=== PATIENT | female | born 1945 | race Caucasian/White ===

== ENCOUNTER 2016-05-29 14:56 | Outpatient (CLI) | payer MEDICARE ==
[2016-05-30 12:01] LABS: #Basophils 0.2 thou/uL (0.0-0.2); #Eosinphils 0.2 thou/uL (0.0-0.7); #Lymphocytes 1.3 thou/uL (1.20-3.40); #Monocytes 0.7 thou/uL (0.11-0.59); %Basophils 1.4 % (0.0-1.0); %Monocytes 5.7 % (0.0-10.0); Hematocrit 44.3 % (36.0-47.0); Mean Platelet Volume 8.1 fL (7.4-10.4); White Blood Cell (WBC) Count 11.4 thou/uL (4.8-10.8)
[2016-05-30 12:33] LABS: Hemoglobin A1c 5.4 % (4.0-6.0)
[2016-05-30 12:35] LABS: ALT (SGPT) 21 U/L (0-55); AST (SGOT) 25 U/L (5-34); Alkaline Phosphatase 81 U/L (40-150); Anion Gap 19 mmol/L (10-20); BUN (Urea Nitrogen) 20 mg/dL (9.8-20.1); Bilirubin, Total 0.3 mg/dL (0.2-1.2); Calc. Creatinine Clearance 0 mL/min (70-130); Calcium 9.7 mg/dL (7.8-10.44); Carbon Dioxide 34 mmol/L (23-31); Chloride 94 mmol/L (98-107); Estimated GFR-MDRD 47; Globulin 3.1 g/dL (2.4-3.5); LDL Cholesterol, Calculated 112 mg/dL; Protein, Total 6.9 g/dL (5.8-8.1)
== END 2016-05-29 14:57 | disposition home or self-care (01) ==
LOC: LABLEX 14:56
PROVIDERS: ATTEND Family Medicine
DX: N39.0 Urinary tract infection, site not specified (principal)
CPT/HCPCS: 36415; 80053; 80061; 82306; 83036; 84443; 85025; 87086

== ENCOUNTER 2016-05-30 10:34 | Outpatient (CLI) | payer MEDICARE | END 2016-05-30 10:35 | disposition home or self-care (01) | LOC: BURLAB 10:34 | PROVIDERS: ATTEND Family Medicine | DX: I10 Essential (primary) hypertension (principal); R81 Glycosuria; M81.0 Age-related osteoporosis without current pathological fracture; D64.9 Anemia, unspecified; E03.9 Hypothyroidism, unspecified; Z79.899 Other long term (current) drug therapy ==